=== PATIENT | male | born 1995 | race Caucasian/White ===

== ENCOUNTER 2016-10-27 10:26 | Emergency (ER) | payer MEDICAID, OTHER ==
[~2016-10-27] VITALS: Ht 180.3 cm; Wt 86.6 kg
[2016-10-27 11:17] LABS: BASOPHILS % (AUTO) 1 % (0-10); EOSINOPHILS # (AUTO) 0.2 10^3/uL (0.0-0.3); EOSINOPHILS % (AUTO) 4 % (0-10); LYMPHOCYTES # (AUTO) 1.8 X 10^3 (1.0-4.0); LYMPHOCYTES % (AUTO) 29 % (12-44); MEAN CORPUSCULAR HEMOGLOBIN 29 PG (25-34); MEAN CORPUSCULAR HGB CONC 34 G/DL (32-36); MEAN CORPUSCULAR VOLUME 85 FL (80-99); MEAN PLATELET VOLUME 10.6 FL (7.4-10.4); MONOCYTES # (AUTO) 0.5 X 10^3 (0.0-1.0); MONOCYTES % (AUTO) 8 % (0-12); NEUTROPHILS # (AUTO) 3.6 X 10^3 (1.8-7.8); NEUTROPHILS % (AUTO) 59 % (42-75); PLATELET COUNT 230 10^3/uL (130-400); RED BLOOD COUNT 5.36 10^6/uL (4.35-5.85); RED CELL DISTRIBUTION WIDTH 12.4 % (10.0-14.5)
--- NOTE | 2016-10-27 11:19 | Diagnostic Imaging Report ---
INDICATION: Chest heaviness. COMPARISON: None. FINDINGS: Frontal and lateral views of the chest demonstrate normal heart size and pulmonary vascularity. The lungs are clear. There are no signs of infiltrate, pleural effusions or pneumothoraces. The visualized osseous structures show no acute abnormalities. IMPRESSION: 1. No acute process. No signs of infiltrates, effusions or pneumothoraces. Dictated by: Dictated on workstation # [id number]
--- NOTE | 2016-10-27 11:28 | ED Chest Pain ---
General Chief Complaint: Chest Pain Stated Complaint: CHEST TIGHTNESS Nursing Triage Note: c/o chest heaviness. Onset yesterday afternoon. Headache and feeling light-headed reported. 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 Nursing Sepsis Screen: No Definite Risk Source: patient Exam Limitations: no limitations History of Present Illness Time seen by provider: 11:27 Initial Comments 21-year-old male patient presents to the emergency department with complaints of left-sided chest pressure/heaviness beginning yesterday around [id number]. Woke up this AM with improved symptoms, but as the day has progressed the symptoms have returned. 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 States he has been drinking more pop than usual and very little water. C/o lightheadedness and dizziness that is worse with standing. Denies any personal cardiac or pulmonary history. Timing/Duration: intermittent, 1 day Severity/Quality: pressure (pressure/heaviness) Location: other (left chest) Radiation: no radiation Activities at Onset: none Prior CP/Workup: no prior chest pain, no prior cardiac workup Modifying Factors: worse with other (denies modifying factors.) ASA po WOOD CRAFTSMAN: No NTG SL WOOD CRAFTSMAN: No Allergies and Home Medications Allergies Coded Allergies: No Known Drug Allergies (Unverified , 10/27/16) Home Medications Prednisone 20 Mg Tab, 40 MG PO DAILY, #10 Ref 0 Prescribed by: JONNY BLACK on 10/27/16 1241 Review of Systems Constitutional: No chills, No diaphoresis, dizziness, No fever, other (fatigue) EENTM: No Symptoms Reported Respiratory: Denies Cough, Denies Orthopnea, Shortness of Air (states "maybe a little SOA.), Denies SOA With Exertion, Denies Stridor, Denies Wheezing Cardiovascular: See HPI, Chest Pain, Denies Edema, Denies Irregular Heart Rate , Lightheadedness, Denies Palpitations, Denies Syncope Gastrointestinal: Denies Abdomen Distended, Denies Abdominal Pain, Denies Constipated, Denies Diarrhea, Denies Nausea, Denies Poor Appetite, Denies Vomiting Genitourinary: No Symptoms Reported Musculoskeletal: no symptoms reported Skin: no symptoms reported Psychiatric/Neurological: No Symptoms Reported All Other Systems Reviewed Negative Unless Noted: Yes (Negative excepted noted.) Past Naxqzue-Xgawom-Yzlhmm Hx Patient Social History Alcohol Use: Denies Use Recreational Drug Use: No Smoking Status: Never a Smoker Recent Foreign Travel: No Contact w/Someone Who Travel: No Recent Infectious Disease Expo: No Recent Hopitalizations: No Surgeries History of Surgeries: No Respiratory History of Respiratory Disorde: No Cardiovascular History of Cardiac Disorders: No Neurological History of Neurological Disord: No Genitourinary History of Genitourinary Disor: No Gastrointestinal History of Gastrointestinal Di: No Musculoskeletal History of Musculoskeletal Dis: No Endocrine History of Endocrine Disorders: No HEENT History of HEENT Disorders: No Cancer History of Cancer: No Psychosocial History of Psychiatric Problem: No Integumentary History of Skin or Integumenta: No Blood Transfusions History of Blood Disorders: No Adverse Reaction to a Blood Tr: No Reviewed Nursing Assessment Reviewed/Agree w Nursing PMH: Yes Family Medical History Significant Family History: CAD Over 55 Years Old (Maternal grandfather "maybe had a heart attack, but he was old" per patient.) Physical Exam Vital Signs Vital Sign - Last 12Hours 10/27/16 10:26 Temp 98.1 Pulse 86 Resp 18 B/P (MAP) 121/74 Pulse Ox 99 O2 Delivery Room Air Capillary Refill : Less Than 3 Seconds General Appearance: No Apparent Distress, WD/WN HEENT: PERRL/EOMI, Pharynx Normal Neck: Normal Inspection, Supple Respiratory: Lungs Clear, Normal Breath Sounds, No Accessory Muscle Use, No Respiratory Distress, Other (mild reproduction of symptoms with palpation of left chest.) Cardiovascular: Regular Rate, Rhythm, No Edema, No Gallop, No Murmur, Normal Peripheral Pulses Gastrointestinal: Normal Bowel Sounds, No Organomegaly, No Pulsatile Mass, Non Tender, Soft, No Distended Extremity: Normal Capillary Refill, No Calf Tenderness, No Pedal Edema Neurologic/Psychiatric: Alert, Oriented x3, Normal Mood/Affect Skin: Normal Color, Warm/Dry, No Cool, No Cyanosis, No Diaphoresis, No Mottled Progress/Results/Core Measures Results/Orders Lab Results Laboratory Tests Test 10/27/16 11:05 Range/Units White Blood Count 6.0 4.3-11.0 10^3/uL Red Blood Count 5.36 4.35-5.85 10^6/uL Hemoglobin 15.4 13.3-17.7 G/DL Hematocrit 46 40-54 % Mean Corpuscular Volume 85 80-99 FL Mean Corpuscular Hemoglobin 29 25-34 PG Mean Corpuscular Hemoglobin Concent 34 32-36 G/DL Red Cell Distribution Width 12.4 10.0-14.5 % Platelet Count 230 130-400 10^3/uL Mean Platelet Volume 10.6 H 7.4-10.4 FL Neutrophils (%) (Auto) 59 42-75 % Lymphocytes (%) (Auto) 29 12-44 % Monocytes (%) (Auto) 8 0-12 % Eosinophils (%) (Auto) 4 0-10 % Basophils (%) (Auto) 1 0-10 % Neutrophils # (Auto) 3.6 1.8-7.8 X 10^3 Lymphocytes # (Auto) 1.8 1.0-4.0 X 10^3 Monocytes # (Auto) 0.5 0.0-1.0 X 10^3 Eosinophils # (Auto) 0.2 0.0-0.3 10^3/uL Basophils # (Auto) 0.0 0.0-0.1 10^3/uL Sodium Level 139 135-145 MMOL/L Potassium Level 4.0 3.6-5.0 MMOL/L Chloride Level 103 98-107 MMOL/L Carbon Dioxide Level 27 21-32 MMOL/L Anion Gap 9 5-14 MMOL/L Blood Urea Nitrogen 16 7-18 MG/DL Creatinine 1.05 0.60-1.30 MG/DL Estimat Glomerular Filtration Rate > 60 BUN/Creatinine Ratio 15 Glucose Level 92 70-105 MG/DL Calcium Level 9.8 8.5-10.1 MG/DL Total Bilirubin 0.3 0.1-1.0 MG/DL Aspartate Amino Transf (AST/SGOT) 17 5-34 U/L Alanine Aminotransferase (ALT/SGPT) 18 0-55 U/L Alkaline Phosphatase 78 40-136 U/L Troponin I < 0.30 <0.30 NG/ML Total Protein 7.6 6.4-8.2 GM/DL Albumin 4.5 3.2-4.5 GM/DL My Orders Ashlyn - JONNY BLACK PA Ns Iv 1000 Ml (Sodium Chloride 0.9%) (10/27/16 11:38) Albuterol/Ipra Inhalation Soln (Duoneb I (10/27/16 11:45) Svn Sm Volume Nebulizer Rt-Rfs (10/27/16 11:40) Medications Given in ED Current Medications Medications Dose Ordered Sig/Nat Route Start Time Stop Time Status Last Admin Dose Admin Albuterol/ Ipratropium 3 ml ONCE ONCE INH 10/27/16 11:45 10/27/16 11:46 DC 10/27/16 12:02 3 ML Sodium Chloride 1,000 ml @ 0 mls/hr Q0M ONCE IV 10/27/16 11:38 10/27/16 11:40 DC 10/27/16 12:30 1,000 MLS/HR Vital Signs/I&O Vital Sign - Last 12Hours 10/27/16 10/27/16 10:26 12:03 Temp 98.1 Pulse 86 Resp 18 B/P (MAP) 121/74 Pulse Ox 99 94 O2 Delivery Room Air Room Air Blood Pressure Mean: 90 ECG Initial ECG Impression Date: Oct 27, 2016 Initial ECG Impression Time: 10:40 Initial ECG Rate: 69 Initial ECG Rhythm: Normal Sinus Initial ECG Intervals: Normal Initial ECG Impression: Normal Initial ECG Comparisson: No Previous ECG Available Comment sinus rhythm. No STEMI or arrhythmia. ECG reviewed by Dr. Trujillo. Diagnostic Imaging Diagonstic Imaging: Xray Plain Films/CT/US/NM/MRI: chest Comments MED REC#: [id number] PT STATUS: REG ER : 1995 PHYSICIAN: MARY TRUJILLO MD ADMIT DATE: 10/27/16/ER Draft Date of Exam:10/27/16 CHEST PA/LAT (2 VIEW) INDICATION: Chest heaviness. COMPARISON: None. FINDINGS: Frontal and lateral views of the chest demonstrate normal heart size and pulmonary vascularity. The lungs are clear. There are no signs of infiltrate, pleural effusions or pneumothoraces. The visualized osseous structures show no acute abnormalities. IMPRESSION: 1. No acute process. No signs of infiltrates, effusions or pneumothoraces. Dictated on workstation # [id number] Reviewed: Reviewed by Me (radiology report reviewed by me) Departure Communication (Admissions) Progress Notes All laboratory and diagnostic findings discussed with the patient. Patient reports feeling better with IVF. Didn't feel like the duoneb helped with symptoms. Dizziness and chest heaviness is improved. plan for dsch to home with oral prednisone. Return precautions were discussed with the patient as described in the discharge instructions of this report. Patient verbalizes understanding and agrees with the treatment plan. Impression Impression: Primary Impression: Volume depletion Additional Impression: Chest heaviness Disposition: HOME, SELF-CARE Condition: Improved Departure-Patient Inst. Decision time for Depature: 12:40 Referrals: SHALMO ASTUDILLO MD (PCP/Family) Primary Care Physician Patient Instructions: Chest Pain (DC), Chest Pain That Is Not Caused by the Heart (DC), Dehydration, Adult (DC) Add. Discharge Instructions: All discharge instructions reviewed with patient and/or family. Voiced understanding. Medications as instructed. Tylenol extra strength over-the- counter as directed for pain. Ibuprofen 800 mg by mouth every 8 hours as needed for pain. Drink plenty of fluids. Avoid the heat for 2-3 days. Follow- up with your primary care physician for recheck as an outpatient. Return to the emergency department for worsened pain, shortness of air, dizziness, numbness, tingling, weakness, vomiting, decreased urination, changes in behavior , or any other concerns. Scripts Prednisone (Prednisone) 20 Mg Tab 40 MG PO DAILY, #10 TAB 0 Refills Prov: JONNY BLACK 10/27/16 Work/School Note: Work Release Form Date Seen in the Emergency Department: Oct 27, 2016 Return to Work: Oct 29, 2016 Restrictions: No Restrictions JONNY BLACK Oct 27, 2016 11:28
[2016-10-27] MEDS ORDERED: NS IV 1000 ML 1,000 ML IV ONE (11:38)
[2016-10-27] MEDS ORDERED: RT-ALBUTEROL/IPRATROPIUM 3 ML (DUONEB) VIAL INH ONE (11:45)
[2016-10-27 11:52] LABS: ALANINE AMINOTRANSFERASE 18 U/L (0-55); ALBUMIN 4.5 GM/DL (3.2-4.5); ANION GAP 9 MMOL/L (5-14); ASPARTATE AMINO TRANSFERASE 17 U/L (5-34); BILIRUBIN,TOTAL 0.3 MG/DL (0.1-1.0); BLOOD UREA NITROGEN 16 MG/DL (7-18); BUN/CREATININE RATIO 15; CALCIUM 9.8 MG/DL (8.5-10.1); CARBON DIOXIDE 27 MMOL/L (21-32); CHLORIDE 103 MMOL/L (98-107); CREATININE SERUM 1.05 MG/DL (0.60-1.30); GFR ESTIMATED > 60; GLUCOSE 92 MG/DL (70-105); SODIUM 139 MMOL/L (135-145); TOTAL PROTEIN 7.6 GM/DL (6.4-8.2)
[2016-10-27 11:58] LABS: TROPONIN I < 0.30 NG/ML (<0.30)
[2016-10-27] MEDS ORDERED: PRD20T PO (12:41)
[2016-10-27 13:17] VITALS: BP 122/70
== END 2016-10-27 13:17 | disposition home or self-care (01) ==
LOC: EDUNIT# 10:26 → ER 10:31
DX: R07.89 Other chest pain (principal); E86.9 Volume depletion, unspecified; Z82.49 Family history of ischemic heart disease and other diseases of the circulatory system
CPT/HCPCS: 36415; 71020; 80053; 84484; 85025; 93005; 94640; 96360

== ENCOUNTER 2020-02-24 13:31 | Emergency (ER) | payer SELFPAY ==
[~2020-02-24] VITALS: Ht 180 cm; Wt 91.0 kg
[~2020-02-24 13:31] MED LIST: PRD20T PO
[2020-02-24 13:40] VITALS: BP 136/87
[2020-02-24] MEDS ORDERED: LIDOCAINE/EPI 2% 1:100,00 (XYLOCAINE) 20 ML VIAL INJ ONE (13:45)
--- NOTE | 2020-02-24 13:45 | ED Head Injury ---
General Stated Complaint: HEAD LAC Source: patient Exam Limitations: no limitations History of Present Illness Date Seen by Provider: Feb 24, 2020 Time Seen by Provider: 13:45 Initial Comments Was cutting trees when a tree limb fell down striking him on the top of the head. No loss of consciousness no neck pain no headache no confusion. Tetanus is up-to-date. No weakness or numbness in any extremity. He does have a large scalp laceration. He was wearing a hoodie with the rey up and a baseball cap when this struck him. Occurred: just prior to arrival Severity: moderate Location: parietal Method of Injury: direct blow Loss of Consciousness: no loss of consciousness Allergies and Home Medications Allergies Coded Allergies: No Known Drug Allergies (Unverified , 10/27/16) Home Medications Prednisone 20 Mg Tab, 40 MG PO DAILY Prescribed by: JONNY BLACK on 10/27/16 1241 Patient Home Medication List Home Medication List Reviewed: Yes Review of Systems Review of Systems Constitutional: see HPI Eyes: No Symptoms Reported Ears, Nose, Mouth, Throat: no symptoms reported Respiratory: no symptoms reported Cardiovascular: no symptoms reported Genitourinary: no symptoms reported Musculoskeletal: no symptoms reported Skin: no symptoms reported Psychiatric/Neurological: No Symptoms Reported Endocrine: No Symptoms Reported Past Gqdqrvo-Mcxocr-Ybzrxq Hx Patient Social History Recent Hopitalizations: No Past Medical History Surgeries: No Respiratory: No Cardiac: No Neurological: No Genitourinary: No Gastrointestinal: No Musculoskeletal: No Endocrine: No HEENT: No Cancer: No Psychosocial: No Integumentary: No Blood Disorders: No Adverse Reaction/Blood Tranf: No Family Medical History CAD Over 55 Years Old Physical Exam Vital Signs Vital Signs - First Documented 02/24/20 13:40 Temp 35.9 Pulse 100 Resp 18 B/P (MAP) 136/87 (103) Pulse Ox 97 Capillary Refill : Height, Weight, BMI Height: 5'11.00" Weight: 191lbs. oz. 86.507232fv; BMI Method:Stated General Appearance: WD/WN, no apparent distress HEENT: PERRL/EOMI, normal ENT inspection, TMs normal, other (There is a large bleeding midline scalp laceration oriented anterior to posterior) Neck: non-tender, full range of motion Respiratory: normal breath sounds, no respiratory distress, no accessory muscle use Gastrointestinal: normal bowel sounds, non tender Extremities: normal range of motion, non-tender Psychiatric: alert, oriented x 3 Crainal Nerves: normal hearing, normal speech, PERRL Skin: normal color, warm/dry [place]ont Coma Score Best Eye Response: (4) Open Spontaneously Best Verbal Response: (5) Oriented Best Motor Response: (6) Obeys Commands Elaine Total: 15 Procedures/Interventions Wound Location: Scalp Wound Length (cm): 9 Wound's Depth, Shape: sub Q Wound Explored: clean Irrigated w/ Saline (ccs): 120 Anesthesia: Lidocaine w/ Epi Volume Anesthetic (ccs): 5 Staple Repair: Stapler 35W 12 kristel Progress/Results/Core Measures Results/Orders My Orders Orders - LUX LEOS APRN Ct Head/Cervical Spine Wo (02/24/20 13:44) Lidocaine/Epi 2% 1:100,000 (Xylocaine/Ep (02/24/20 13:45) Medications Given in ED Current Medications Medications Dose Ordered Sig/Nat Route Start Time Stop Time Status Last Admin Dose Admin Lidocaine/ Epinephrine 20 ml ONCE ONCE INJ 02/24/20 13:45 02/24/20 13:46 DC 02/24/20 14:04 20 ML Vital Signs/I&O 02/24/20 13:40 Temp 35.9 Pulse 100 Resp 18 B/P (MAP) 136/87 (103) Pulse Ox 97 Departure Impression Primary Impression: Scalp laceration Disposition: 01 HOME, SELF-CARE Condition: Stable Departure-Patient Inst. Decision time for Depature: 14:20 Referrals: NO,LOCAL PHYSICIAN (PCP/Family) Primary Care Physician Patient Instructions: Laceration Repair With [place] (DC) Add. Discharge Instructions: Return to ER in about 5 to 7 days to have the kristel removed. Take the antibiotics as directed. Return to ER for any worsening. Scripts Cephalexin (Keflex) 500 Mg Capsule 500 MG PO TID, #14 CAP Prov: LUX LEOS APRN 02/24/20 ULX LEOS APRN Feb 24, 2020 13:45
--- NOTE | 2020-02-24 14:12 | NUR ---
12 STAPLED TO TOP OF HEAD
[2020-02-24] MEDS ORDERED: CEPH-507 PO (14:21)
--- NOTE | 2020-02-24 14:51 | Diagnostic Imaging Report ---
EXAMINATION: CT head and CT cervical spine without contrast. TECHNIQUE: Multiple contiguous axial images were obtained through the brain and cervical spine without the use of intravenous contrast. Sagittal and coronal reformations through the cervical spine were then performed. All CT scans use one or more of the following dose optimizing techniques: automated exposure control, MA and/or KvP adjustment based on a patient size and exam type, or iterative reconstruction. HISTORY: Head injury. COMPARISON: None available. FINDINGS: The ray-white matter differentiation is normal. No mass effect or midline shift. The ventricles are normal in size and configuration. Basilar cisterns are patent. There are no intra- or extra-axial fluid collections. There is no intracranial hemorrhage. The orbits are normal. There is left maxillary sinus mucosal disease. Mastoid air cells are clear. No soft tissue abnormality is seen. No osseous lesions or fractures are seen. Skin kristel are seen at the skull vertex. The alignment of the cervical spine is normal. No fracture is seen. Vertebral body heights are normal. The craniocervical junction is normal. There is no degenerative disease in the cervical spine. There is no spinal canal stenosis. No soft tissue abnormality is seen in the neck. Limited views of the superior thorax are normal. IMPRESSION: 1. No acute intracranial abnormality. 2. No cervical spine fracture. Dictated by: Dictated on workstation # [id number]
== END 2020-02-24 14:56 | disposition home or self-care (01) ==
LOC: EDUNIT# 13:31 → ER 13:34
DX: S01.01XA Laceration without foreign body of scalp, initial encounter (principal); R40.2360 Coma scale, best motor response, obeys commands, unspecified time; R40.2140 Coma scale, eyes open, spontaneous, unspecified time; R40.2250 Coma scale, best verbal response, oriented, unspecified time; Z79.52 Long term (current) use of systemic steroids; W20.8XXA Other cause of strike by thrown, projected or falling object, initial encounter
CPT/HCPCS: 12015; 70450; 72125

== ENCOUNTER 2020-03-01 13:11 | Emergency (ER) | payer OTHER ==
[~2020-03-01] VITALS: Ht 180 cm; Wt 93.0 kg
[~2020-03-01 13:11] MED LIST changes: +CEPH-507 PO
[2020-03-01 13:20] VITALS: BP 129/67
== END 2020-03-01 13:51 | disposition home or self-care (01) ==
LOC: EDUNIT# 13:11 → ER 13:13
DX: S01.91XD Laceration without foreign body of unspecified part of head, subsequent encounter (principal); X58.XXXD Exposure to other specified factors, subsequent encounter